=== PATIENT | male | born 2000 | race African-American/Black ===

== ENCOUNTER 2024-02-22 09:46 | Emergency (ER) | payer BC, MEDICAID ==
[2024-02-22] MEDS ORDERED: Ketorolac Tromethamine 30 MG (1 mL) VIAL ONE (10:16)
== END 2024-02-22 10:21 | disposition home or self-care (01) ==
LOC: ERS 09:46
DX: K08.89 Other specified disorders of teeth and supporting structures (principal)
CPT/HCPCS: 96372; 99282; J1885